=== PATIENT | female | born 1985 | race Caucasian/White ===

== ENCOUNTER → 2020-04-29 | Outpatient (CLI) | payer BC, OTHER ==
[~2020-04-29] MED LIST: B COMPLEX1 EACH PO; ENBRACE HR SOF1 EACH PO
== END ==
LOC: LAB 08:02
PROVIDERS: ATTEND Surgery
DX: Z01.812 Encounter for preprocedural laboratory examination (principal); Z20.828 Contact with and (suspected) exposure to other viral communicable diseases

== ENCOUNTER 2020-05-03 06:11 | Day surgery (SDC) | payer BC, OTHER ==
[~2020-05-03] VITALS: Ht 162.6 cm; Wt 47.6 kg
--- NOTE | ~2020-05-03 | H ---
[facility] [address] HISTORY AND PHYSICAL Name: Room #: [facility] M.R.#: [id number] Admission: Attend Phys: Art Espinosa MD Discharge: Date of : 83 Report #: [id number] THIS REPORT FOR: cc: Felicia Billings MD, Yutaka MD Chu,Art Alonso MD ~ CC: Art Billings DATE OF SERVICE: 05/03/2020 PREOPERATIVE DIAGNOSIS: Cholecystitis with cholelithiasis. HISTORY OF PRESENT ILLNESS: The patient is a 35-year-old who had a baby about 7 months ago. Two weeks after delivery, the patient started to have abdominal pain. The patient did try alternative treatment. She has had about 20 episodes of attacks. She did think that this was ____ related. She has been avoiding fatty foods. She has trouble with dairy product, cookies. The pain could last up to 5-6 hours and even up to 24 hours. The pain is in the right upper quadrant and right epigastric area radiating to her back. Pain is described as cramping, vice-like squeezing. Associated bloating, vomiting a few times. Associated nausea. Also painful gas symptoms. No diarrhea, mostly constipation. Patient's father had his gallbladder removed. Ultrasound was performed and it did show numerous gallstones in the gallbladder. No gallbladder wall thickening. Common bile duct measures 4 mm. She said her liver function tests were normal. The patient is recommended to have gallbladder removed. She is here for surgery. PAST SURGICAL HISTORY: Root canal 2018. Eye surgery 2018. ALLERGIES: SHE IS ALLERGIC TO CLINDAMYCIN. MEDICATIONS: She is not on any medication. Vitamins, vitamins. The patient has fibro years ago. FAMILY HISTORY: There is heart disease that runs in the family. SOCIAL HISTORY: The patient is a [id number] mom. ____ smoke, drink. She is still . REVIEW OF SYSTEMS: She had eye surgery on her left side. I guess fibromyalgia symptoms of her back. No chest pain, shortness of breath. No numbness or weakness. PHYSICAL EXAMINATION: [facility] [address] [place] [address] HISTORY AND PHYSICAL Name: Room #: [facility] M.R.#: [id number] Admission: Attend Phys: Art Espinosa MD Discharge: Date of : 83 Report #: [id number] GENERAL: The patient is well-nourished female, in no acute distress. She is fairly thin. HEENT: Pupils are reactive to light. Extraocular muscles are intact. Oropharynx is clear. NECK: Soft and supple, no masses. LUNGS: Clear to auscultation. HEART: Regular rate and rhythm. No murmur or gallop. ABDOMEN: Soft, nondistended, nontender. The patient is tender in the right upper quadrant. No ascites. EXTREMITIES: No cyanosis, clubbing, edema. NEUROLOGIC: Motor function is normal. No numbness. IMPRESSION: The patient is 35 years old with abdominal pain for about 7 months. She has tried alternative type treatment, but not successful. She continues to have pain. She does have gallstones. The patient is recommended to have gallbladder removed. Laparoscopic cholecystectomy was discussed in detail. The patient did have many questions and they were answered regarding the procedure and the risks. The risks involved include bleeding, infection, common bile duct injury. The patient is currently . She was recommended to discuss anesthetic with the anesthesiologist. By: [id number] Art Espinosa MD /nt
--- NOTE | ~2020-05-03 | O ---
[facility] [place] [address] OPERATIVE REPORT Name: Room #: [facility]..#: [id number] Admission: 05/03/20 Attend Phys: Art Espinosa MD Discharge: 05/03/20 Date of : 83 Report #: [id number] THIS REPORT FOR: cc: Felicia Billings MD,Felicia Espinosa,Art Alonso MD ~ CC: Art Billings DATE OF SERVICE: 05/03/2020 PREOPERATIVE DIAGNOSIS: Cholecystitis with cholelithiasis. POSTOPERATIVE DIAGNOSIS: Cholecystitis with cholelithiasis. PROCEDURE PERFORMED: Laparoscopic cholecystectomy with cholangiogram. SURGEON: Art Espinosa MD ANESTHESIA: General anesthesia. COMPLICATIONS: None. BLOOD LOSS: 5 mL. PROCEDURE NOTE: With the patient under general anesthesia, abdomen was prepped and draped in sterile fashion. Timeout was performed. IV antibiotic was administered. A 2 cm incision was made infraumbilically. This dissection carried down to the fascia. Fascia was grasped with hemostat. Fascia was then opened under visualization, 0 Vicryl suture placed on the fascia for retraction. Veress needle was then placed through the peritoneum. Abdominal cavity was insufflated with CO2. After creating pneumoperitoneum pressure of 15, 11 mm trocar was placed into the pneumoperitoneum without difficulty. No harm to underlying tissue. Two 5 mm trocars were placed in the right upper quadrant and a 5 mm trocar was placed in right epigastrium. Patient was placed in the reverse Trendelenburg position, right side tilted up. Gallbladder was lifted over the liver. The cystic duct and cystic artery was partially visualized. The peritoneum was dissected free laterally and then medially. The cystic artery was easily found without difficulty. This was isolated, clipped x 2 proximally and 1 distally and then divided. The cystic duct was then isolated without difficulty. The cystic duct was clipped at the junction of the cystic duct to the gallbladder. Cystic duct was noted to be moderately dilated. Cholangiogram catheter was placed. Fluoroscopic cholangiogram was obtained. The common duct filled out well along with hepatic duct. Initially, there were 2 small grindstone defect, looked like air bubble. These flushed out. I do not see much of spillage into the duodenum. The patient was given glucagon 1 ampule [address] [address] OPERATIVE REPORT Name: Room #: [facility] M.Raghavendra.#: [id number] Admission: 05/03/20 Attend Phys: Art Espinosa MD Discharge: 05/03/20 Date of : 83 Report #: [id number] then after 2 minutes, a repeat cholangiogram was obtained. There was good flow identified now out of the duct into the duodenum. No filling defect seen in the common duct. Cholangiogram catheter was then removed. The proximal cystic duct was clipped x 2. Cystic duct was then divided. The gallbladder was free from the liver bed without difficulty. The gallbladder was freed, placed in a specimen bag, retrieved through the infraumbilical port. Hemostasis obtained. No bleeding, no bile was identified in the fluid. Irrigation was performed and aspirated out. The clips were intact. CO2 was evacuated. The infraumbilical fascia defect was closed with [id number] 0 Vicryl x 2. Skin was irrigated, closed with 5-0 PDS. Steri-Strip, Band-Aids applied. The patient tolerated the procedure well. By: [id number] Art Espinosa MD /nt
[2020-05-03 07:10] LABS: HEMATOCRIT 43.4 % (37.0-47.0); HEMOGLOBIN 14.6 gm/dL (12.0-15.0)
[2020-05-03 07:32] LABS: ALBUMIN 4.3 g/dL (3.4-5.0); DIRECT BILIRUBIN 0.2 mg/dL (<0.1-0.2); TOTAL BILIRUBIN 0.4 mg/dL (0.2-1.0); TOTAL PROTEIN 8.2 g/dL (6.4-8.2)
[2020-05-03 08:22] VITALS: BP 107/76
[2020-05-03] MEDS ORDERED: TRAMADOL 50 MG50 MG PO (09:13)
[2020-05-03 09:28] VITALS: BP 107/76
== END 2020-05-03 10:00 | disposition home or self-care (01) ==
LOC: OR 06:11 → TBA 06:11 → OR 10:00
PROVIDERS: ATTEND Surgery
DX: K80.18 Calculus of gallbladder with other cholecystitis without obstruction (principal); R10.9 Unspecified abdominal pain; Z98.890 Other specified postprocedural states; Z79.899 Other long term (current) drug therapy; Z88.8 Allergy status to other drugs, medicaments and biological substances
CPT/HCPCS: 50010; 50101; 50249; 50411; 50555; 50558; 51489; 52265; 53307; 53310; 53312; 55245; 55317; 56462; 56525; 56526; 62110; 62900; 70005